=== PATIENT | male | born 1995 | race Caucasian/White ===

== ENCOUNTER 2022-02-18 01:48 | Emergency (ER) | payer SELFPAY ==
[~2022-02-18] VITALS: Ht 167.6 cm; Wt 64.9 kg
[2022-02-18 01:52] VITALS: BP 126/82
--- NOTE | 2022-02-18 01:56 | NUR ---
PT AMBULATED TO BED 11
--- NOTE | 2022-02-18 01:57 | NUR ---
26/M C/O POSSIBLE RIGHT SHOULDER DISLOCATION, STATES HE TOOK A BOX OFF A SHELF ONTO HIS RIGHT SHOULDER AND BELIEVES DISLOCATED IT. REPORTS HX OF DISLOCATION 4X IN THE PAST ON SAME SIDE. CMS INTACT, LIMITED ROM. DENIES N/V/D, COUGH, FEVER, CP, OR SOB. SKIN PINK/WARM/DRY. A/OX4, UNLABORED BREATHING, AND AMBULATORY. PMH: DENIES NKA
[2022-02-18] MEDS ORDERED: KETOROLAC 30 MG/ML VIAL IM ONE (02:35)
--- NOTE | 2022-02-18 02:38 | NUR ---
DR TURNER AT BEDSIDE PERFOROMING RIGHT SHOULDER REDUCTION. PT REFUSED XRAY.
[2022-02-18] MEDS ORDERED: NAPR-54 PO (02:47)
--- NOTE | 2022-02-18 02:57 | NUR ---
PT DECLINED SLING, SEDATION, AND XRAY. PT HAS FULL ROM AND CMS IS INTACT.
[2022-02-18 03:03] VITALS: BP 132/78
--- NOTE | 2022-02-18 03:04 | NUR ---
Patient discharged with v/s stable. Written and verbal after care instructions given and explained. Patient alert, oriented and verbalized understanding of instructions. Ambulatory with steady gait. All questions addressed prior to discharge. ID band removed. Patient advised to follow up with PMD. Rx of NAPROSYN given. Patient educated on indication of medication including possible reaction and side effects. Opportunity to ask questions provided and answered. VSS, A/OX4, AMBULATORY, UNLABORED BREATHING, AND CALM DEMEANOR.
== END 2022-02-18 03:00 | disposition home or self-care (01) ==
LOC: MED 01:48
DX: S43.004A Unspecified dislocation of right shoulder joint, initial encounter (principal); X58.XXXA Exposure to other specified factors, initial encounter; Y93.89 Activity, other specified; Y92.89 Other specified places as the place of occurrence of the external cause; Y99.8 Other external cause status
CPT/HCPCS: 24620; 96372; 99284; J1885